=== PATIENT | female | born 1975 | race Hispanic/Latino ===

== ENCOUNTER 2020-01-04 08:21 | Emergency (ER) | payer OTHER, SELFPAY ==
--- NOTE | 2020-01-04 08:54 | RAD ---
EXAM: Single view of the chest HISTORY: Cough and shortness of breath COMPARISON: None FINDINGS: Single view of the chest shows a normal sized cardiomediastinal silhouette. There is no jaime dence of consolidation, mass, or pleural effusion. The bones are unremarkable. IMPRESSION: No evidence of acute cardiopulmonary disease
[2020-01-04 09:07] LABS: #Eosinphils 0.2 thou/uL (0.0-0.7); #Lymphocytes 1.2 thou/uL (1.20-3.40); #Monocytes 0.4 thou/uL (0.11-0.59); #Neutrophils 8.3 thou/uL (1.40-6.50); %Basophils 0.4 % (0.0-1.0); %Eosinophils 2.3 % (0.0-10.0); %Lymphocytes 11.4 % (21.0-51.0); %Monocytes 4.2 % (0.0-10.0); %Neutrophils 81.7 % (42.0-75.0); Hemoglobin 11.7 g/dL (12.0-16.0); Mean Corpuscular HGB CONC 32.6 g/dL (32.0-36.0); Mean Corpuscular Hemoglobin 23.2 pg (27.0-31.0); Mean Corpuscular Volume 71.3 fL (78.0-98.0); Mean Platelet Volume 9.3 fL (7.4-10.4); Platelet Count 287 thou/uL (130-400); RBC Distribution Width 14.3 % (11.5-14.5); Red Blood Cell (RBC) Count 5.05 mill/uL (4.20-5.40); White Blood Cell (WBC) Count 10.2 thou/uL (4.8-10.8)
[2020-01-04 09:19] LABS: ALT (SGPT) 18 U/L (8-55); AST (SGOT) 22 U/L (5-34); Albumin 4.6 g/dL (3.5-5.0); Alkaline Phosphatase 77 U/L (40-110); Anion Gap 14 mmol/L (10-20); BUN (Urea Nitrogen) 10 mg/dL (7.0-18.7); Bilirubin, Total 0.3 mg/dL (0.2-1.2); Calc. Creatinine Clearance 0 mL/min (70-130); Calcium 9.5 mg/dL (7.8-10.44); Carbon Dioxide 23 mmol/L (22-29); Chloride 105 mmol/L (98-107); Estimated GFR-MDRD 84; Globulin 3.7 g/dL (2.4-3.5); Glucose 110 mg/dL (70-105); Protein, Total 8.3 g/dL (6.0-8.3); Sodium 139 mmol/L (136-145)
[2020-01-04 09:42] LABS: Hypochromia SLIGHT = 6-15 cells (100X) (0-5/hpf); MDiff Complete? YES; Microcytosis MODERATE=15-30 cells (100X) (0-5/hpf); Platelet Morphology Comment Appears Adequate; Polychromasia SLIGHT = 2-3 cells (100X) (0-2/hpf)
[2020-01-04] MEDS ORDERED: Potassium Chloride 20 MEQ TAB ONE (09:44)
[2020-01-05 11:56] LABS: SARS-CoV-2 MS2 Positive; SARS-CoV-2 N Gene Negative; SARS-CoV-2 S Gene Negative; SARS-CoV-2 orf1ab Negative
--- NOTE | 2020-01-07 15:31 | EKG ---
Test Reason : Blood Pressure : / mmHG Vent. Rate : 114 BPM Atrial Rate : 114 BPM P-R Int : 142 ms QRS Dur : 082 ms QT Int : 316 ms P-R-T Axes : 071 065 037 degrees QTc Int : 435 ms Sinus tachycardia Biatrial enlargement ST abnormality, possible digitalis effect Abnormal ECG Confirmed by GENIE ANG, ADNREA ([id number]), international editorial producer DAVID LUTZ ([id number]) on 01/07/2020 3:30:43 PM Referred By: Confirmed By:ANDREA PRESCOTT MD
== END 2020-01-04 10:55 | disposition home or self-care (01) ==
LOC: ERS 08:21
DX: J06.9 Acute upper respiratory infection, unspecified (principal); E87.6 Hypokalemia; Z20.828 Contact with and (suspected) exposure to other viral communicable diseases; I10 Essential (primary) hypertension; Z79.899 Other long term (current) drug therapy
CPT/HCPCS: 71045; 80053; 84484; 85025; 87635; 93005; U0003